=== PATIENT | female | born 1930 | race Caucasian/White ===

== ENCOUNTER 2017-04-01 13:10 | Inpatient (IN) | payer OTHER ==
[~2017-04-01] VITALS: Ht 152.4 cm; Wt 64.4 kg
--- NOTE | ~2017-04-01 | 2DMMODE ---
[facility] [address] [place] [address] 2 D/M-MODE ECHOCARDIOGRAM Name: YULI HAYES Room #: 217-P DIS IN M.R.#: [id number] Admission: 04/01/17 Attend Phys: Nikki Mcclendon Discharge: 04/03/17 Date of : [birth year] Date of Service: 04/03/17 1618 Report #: [id number] THIS REPORT FOR: //name// APPROVED REPORT Study performed: 04/02/2017 07:10:39 EXAM: Comprehensive 2D, Doppler, and color-flow Echocardiogram Patient Location: Echo lab Room #: [facility] Status: routine BSA: 1.61 HR: 70 bpm BP: 138/53 mmHg Rhythm: NSR Other Information Study Quality: Adequate Indications Atrial Fibrillation 2D Dimensions RVDd: 39.27 mm LVEF(%): 61.73 (>50%) IVSd: 10.85 (7-11mm) LVOT Diam: 19.74 (18-24mm) LVDd: 37.03 mm PWd: 11.32 (7-11mm) Ascending Ao: 27.61 (22-36mm) LVDs: 24.99 (25-40mm) Aortic Root: 28.10 mm Ponce's LVEF: 61.73 % Volumes Left Atrial Volume (Systole) Single Plane 4CH: 71.19 mL Single Plane 2CH: 33.71 mL LA ESV Index: 34.00 mL/m2 Aortic Valve AoV Peak Marcus.: 1.88 m/s AO Peak Gr.: 14.15 mmHg LVOT Max P.05 mmHg LVOT Max V: 1.33 m/s CY Vmax: 2.16 cm2 Mitral Valve E/A Ratio: 1.3 MV Decel. Time: 188.39 ms [facility] [place] [address] 2 D/M-MODE ECHOCARDIOGRAM Name: YULI HAYES [facility] Room #: 217-[facility] IN M.R.#: [id number] Admission: 04/01/17 Attend Phys: Nikki Lee Oct Discharge: 04/03/17 Date of : [birth year] Date of Service: 04/03/17 1618 Report #: [id number] MV E Max Marcus.: 1.07 m/s MV A Marcus.: 0.84 m/s MV PHT: 54.63 ms IVRT: 64.59 ms Pulmonary Valve PV Peak Marcus.: 1.13 m/s PV Peak Gr.: 5.09 mmHg Pulmonary Vein P Vein S: 0.70 m/s P Vein D: 0.56 m/s P Vein S/D Ratio: 1.25 Tricuspid Valve TR Peak Marcus.: 3.38 m/s RAP Estimate: 5.00 mmHg TR Peak Gr.: 45.59 mmHg PA Pressure: 51.00 mmHg Left Ventricle The left ventricle is normal size. There is normal LV segmental wall motion. Borderline concentric left ventricular hypertrophy. Left ventricular systolic function is normal. LVEF is 60-65%. Moderate diastolic dysfunction is present (pseudonormal filling). Right Ventricle The right ventricle is normal size. The right ventricular systolic function is normal. Atria Left atrium is dilated. The right atrium size is normal. Aortic Valve Aortic valve is thickened and calcified. Trace aortic regurgitation. There is no aortic valvular stenosis. Mitral Valve Mitral valve leaflets are mildly thickened. Mild mitral annular calcification. Trace mitral regurgitation. No evidence of mitral valve stenosis. Tricuspid Valve The tricuspid valve is normal in structure. There is moderate tricuspid regurgitation. The right atrial pressure is estimated at 5 mmHg. There is moderate pulmonary hypertension with an estimated PAP of 51mmHg. [address] [address] 2 D/M-MODE ECHOCARDIOGRAM Name: YULI HAYES GARY Room #: 217-P [facility] IN M.R.#: [id number] Admission: 04/01/17 Attend Phys: Nikki Mcclendon Discharge: 04/03/17 Date of : [birth year] Date of Service: 04/03/17 1618 Report #: [id number] Pulmonic Valve The pulmonary valve is normal in structure. Trace pulmonic regurgitation. Great Vessels The aortic root is normal in size. The ascending aorta is normal in size. IVC is normal in size and collapses >50% with inspiration. Pericardium There is no pericardial effusion. <Conclusion> The left ventricle is normal size. LVEF is 60-65%. Left atrium is dilated. Aortic valve is thickened and calcified. Trace aortic regurgitation. There is no aortic valvular stenosis. Mitral valve leaflets are mildly thickened. Mild mitral annular calcification. Trace mitral regurgitation. The tricuspid valve is normal in structure. There is moderate tricuspid regurgitation. The right atrial pressure is estimated at 5 mmHg. There is moderate pulmonary hypertension with an estimated PAP of 51mmHg. The pulmonary valve is normal in structure. Trace pulmonic regurgitation. <ELECTRONICALLY SIGNED> By: Aristeo Teague MD 04/03/17 1618 1618 1618 Aristeo Teague MD /INF
--- NOTE | ~2017-04-01 | EKG ---
[address] [place] [address] ELECTROCARDIOGRAM REPORT Name: YULI HAYES GARY Room #: 217-P [facility] IN M.R.#: [id number] Admission: 04/01/17 Attend Phys: Nikki Ansari Discharge: 04/03/17 Date of : [birth year] Report #: [id number] THIS REPORT FOR: //name// [facility] ED Test Date: 2017-04-01 Test Time: 13:23:22 Pat Name: YULI HAYES Department: Room: 217 Gender: F Drafting Clerk: LOY : 1930 Requested By: Jeimy Tang Order Number: [id number] MD: Severiano Maher Measurements Intervals [place] Rate: 159 P: OK: QRS: -49 QRSD: 101 T: 119 QT: 292 QTc: 476 Interpretive Statements Atrial fibrillation with rapid V-rate Left anterior fascicular block Borderline low voltage, extremity leads LVH with secondary repolarization abnormality Compared to ECG 02/04/2009 11:42:46 Left anterior fascicular block now present Left ventricular hypertrophy now present Early repolarization now present Sinus bradycardia no longer present Electronically Signed On 04-03-2017 22:10:51 CDT by Severiano Maher [email or web address] <ELECTRONICALLY SIGNED> By: Severiano Maher MD 04/03/17 2210 1323 1323 Severiano Maher MD /EPI
[2017-04-01 13:11] VITALS: BP 111/80
[2017-04-01] MEDS ORDERED: BENICAR HCT 201 EACH PO (13:51)
[2017-04-01] MEDS ORDERED: LOPRESSOR25 PO (13:51)
[2017-04-01] MEDS ORDERED: RESTORIL30 MG PO (13:52)
[2017-04-01] MEDS ORDERED: NEXIUM40 MG PO (13:52)
[2017-04-01] MEDS ORDERED: ATORVASTATIN CA40 MG PO (13:52)
[2017-04-01] MEDS ORDERED: BIOTIN800 MCG PO (13:53)
[2017-04-01] MEDS ORDERED: CALCIUM 600 MG1 EAC2 PO (13:53)
[2017-04-01] MEDS ORDERED: GLUCOSAMINE HC500 MG PO (13:54)
[2017-04-01 14:09] LABS: HEMOGLOBIN 14.3 gm/dL (12.0-15.0); MCH 31.4 pg (26.0-34.0); MCHC 33.1 g/dL (28.0-37.0); MCV 94.7 fL (80.0-100.0); PLATELET COUNT 365 thou/uL (150-400); RBC 4.54 mil/uL (4.20-5.00); RDW 13.4 % (10.5-14.5); WBC 15.6 thou/uL (4.0-11.0)
[2017-04-01 14:13] LABS: MANUAL DIFF YES
[2017-04-01 14:21] LABS: ANION GAP 8 mmol/L (7-16); BUN 31 mg/dL (7-18); CALCIUM 8.8 mg/dL (8.5-10.1); CHLORIDE 101 mmol/L (98-107); CO2 25 mmol/L (21-32); CREATININE 1.2 mg/dL (0.6-1.0); GLUCOSE 133 mg/dL (74-106); POTASSIUM 3.5 mmol/L (3.5-5.1); SODIUM 134 mmol/L (136-145)
[2017-04-01 14:26] LABS: NT-PRO BRAIN NAT PEPTIDE 4092 pg/mL (<300); TROPONIN-I < 0.04 ng/mL (<0.04-0.07)
[2017-04-01 14:41] LABS: ABSOLUTE NEUTROPHILS 12.8 thou/uL (1.4-8.2); TOTAL CELL COUNT 100
[2017-04-01 15:27] LABS: URINE BILIRUBIN NEGATIVE (Negative); URINE BLOOD NEGATIVE (Negative); URINE COLOR YELLOW; URINE GLUCOSE-RANDOM* NEGATIVE (Negative); URINE KETONES NEGATIVE (Negative); URINE LEUKOCYTES-REFLEX TRACE (Negative); URINE PROTEIN (DIPSTICK) NEGATIVE (Negative); URINE SPECIFIC GRAVITY <= 1.005 (1.003-1.035); URINE UROBILINOGEN 0.2 E.U./dl (0.2-1.0)
[2017-04-01 16:15] LABS: CRYSTALS None Seen /LPF (None Seen); SQUAMOUS 0-3 Few /LPF (0-3); URINE RBC None Seen /HPF (0-2); URINE WBC-REFLEX 0-5 Rare /HPF (0-5)
[2017-04-01 16:24] VITALS: BP 106/61
[2017-04-01 16:47] VITALS: BP 115/61
[2017-04-01 23:37] VITALS: BP 126/87
[2017-04-02 04:22] VITALS: BP 138/53
[2017-04-02 08:00] VITALS: BP 145/53
[2017-04-02 12:43] VITALS: BP 130/70
[2017-04-02 15:19] VITALS: BP 148/60
[2017-04-02 19:27] VITALS: BP 150/71
[2017-04-03 04:23] VITALS: BP 123/42
[2017-04-03 08:35] VITALS: BP 152/66
[2017-04-03 08:52] VITALS: BP 123/42
[2017-04-03] MEDS ORDERED: ELIQUIS5 MG PO (09:21)
[2017-04-03] MEDS ORDERED: DIGOXIN125 MCG PO (09:21)
[2017-04-03 09:46] VITALS: BP 123/42
== END 2017-04-03 13:43 | disposition home or self-care (01) | DRG 310 ==
LOC: ER 13:10 → 2N 16:17 → EROBS 16:17 → 2N 16:55
PROVIDERS: Emergency Medicine
DX: I48.91 Unspecified atrial fibrillation (principal); I10 Essential (primary) hypertension; K21.9 Gastro-esophageal reflux disease without esophagitis; Z90.710 Acquired absence of both cervix and uterus; Z88.8 Allergy status to other drugs, medicaments and biological substances; Z87.891 Personal history of nicotine dependence; Z98.49 Cataract extraction status, unspecified eye
CPT/HCPCS: 10194

== ENCOUNTER → 2017-06-02 | Outpatient (CLI) | payer OTHER ==
[~2017-06-02] MED LIST: ATORVASTATIN CA40 MG PO; BENICAR HCT 201 EACH PO; BIOTIN800 MCG PO; CALCIUM 600 MG1 EAC2 PO; DIGOXIN125 MCG PO; ELIQUIS5 MG PO; GLUCOSAMINE HC500 MG PO; LOPRESSOR25 PO; NEXIUM40 MG PO; RESTORIL30 MG PO
== END ==
LOC: RAD 15:05
DX: Z12.31 Encounter for screening mammogram for malignant neoplasm of breast (principal)

== ENCOUNTER → 2018-06-07 | Outpatient (CLI) | payer OTHER | LOC: RAD 14:36 | DX: Z12.31 Encounter for screening mammogram for malignant neoplasm of breast (principal) ==

== ENCOUNTER 2018-10-21 16:20 | Inpatient (IN) | payer OTHER ==
[~2018-10-21] VITALS: Ht 149.9 cm; Wt 52.8 kg
[2018-10-21 16:37] VITALS: BP 131/65
[2018-10-21 18:35] LABS: HEMATOCRIT 37.8 % (37.0-47.0); HEMOGLOBIN 12.7 gm/dL (12.0-15.0); MCH 31.4 pg (26.0-34.0); MCHC 33.6 g/dL (28.0-37.0); MCV 93.3 fL (80.0-100.0); PLATELET COUNT 231 thou/uL (150-400); RBC 4.05 mil/uL (4.20-5.00); RDW 13.3 % (10.5-14.5); WBC 21.5 thou/uL (4.0-11.0)
[2018-10-21 18:52] LABS: CALCIUM 8.8 mg/dL (8.5-10.1); CREATININE 1.2 mg/dL (0.6-1.0); POTASSIUM 4.6 mmol/L (3.5-5.1)
[2018-10-21 19:07] LABS: ABSOLUTE NEUTROPHILS 19.6 thou/uL (1.4-8.2); ANISOCYTOSIS 1+
--- NOTE | 2018-10-21 19:13 | NUR ---
REPORT FROM DAY NURSE
[2018-10-21 19:33] LABS: URINE BILIRUBIN NEGATIVE (Negative); URINE BLOOD NEGATIVE (Negative); URINE CLARITY CLEAR; URINE COLOR YELLOW; URINE GLUCOSE-RANDOM* NEGATIVE (Negative); URINE KETONES NEGATIVE (Negative); URINE LEUKOCYTES-REFLEX NEGATIVE (Negative); URINE NITRITE-REFLEX NEGATIVE (Negative); URINE PROTEIN (DIPSTICK) NEGATIVE (Negative); URINE UROBILINOGEN 0.2 E.U./dl (0.2-1.0)
[2018-10-21 20:38] VITALS: BP 123/74
[2018-10-21 21:43] VITALS: BP 115/69
[2018-10-21 23:46] VITALS: BP 131/78
[2018-10-22 04:30] VITALS: BP 139/62; BP 147/74
[2018-10-22 06:36] LABS: HEMATOCRIT 32.4 % (37.0-47.0); MCH 31.1 pg (26.0-34.0); MCHC 33.1 g/dL (28.0-37.0); RBC 3.44 mil/uL (4.20-5.00); RDW 13.6 % (10.5-14.5); WBC 11.3 thou/uL (4.0-11.0)
[2018-10-22 06:39] LABS: HEMOGLOBIN 10.7 gm/dL (12.0-15.0)
[2018-10-22 06:52] LABS: CALCIUM 8.3 mg/dL (8.5-10.1); CREATININE 1.1 mg/dL (0.6-1.0); POTASSIUM 4.2 mmol/L (3.5-5.1)
[2018-10-22 06:54] LABS: PROTIME 10.7 Seconds (9.3-11.4)
--- NOTE | 2018-10-22 08:14 | NUR ---
PT ARRIVED TO UNIT APPROX 2230 IN STABLE CONDITION. ADMISSION AND ASSESSMENT COMPLETED, CONSENTS SIGNED. PT A&Ox4, ADMIT WITH LEFT FEMUR FRACTURE, AT BEDSIDE OVERNIGHT. PT REPORTS MINIMAL PAIN IN LEFT LEG, PRIMARILY ONLY WITH MOVEMENT, STATES IT FEEL STIFF AND SHE IS UNABLE TO LIFT/MOVE HER LEG. DENIES SOB OR NAUSEA. REPORTS TAKING ELIQUIS FOR SMALL STROKE IN APR 2017, LAST DOSE TUESDAY ABOUT NOON. CASTRO IN PLACE DRAINING CLEAR YELLOW URINE. IV FLUIDS INFUSING. GAVE ONE TIME DOSE TEMAZEPAM FOR SLEEP. NO OTHER CONCERNS, SHIFT REPORT GIVEN AT 0700.
--- NOTE | 2018-10-22 09:57 | HC ---
[facility] [place] [address] CONSULTATION Name: YULI HAYES Room #: 429-P ADM IN M.R.#: [id number] Admission: 10/21/18 ������������������ Attend Phys: Giancarlo Rayo MD Discharge: ������������������ Date of : [birth year] Report #: [id number] THIS REPORT FOR: //name// CC: Giancarlo Slade CHIEF COMPLAINT: Left hip pain. HISTORY OF PRESENT ILLNESS: The patient is a pleasant 88-year-old female who reports that she was doing some chores around her house when she recalls that she bent over to bean picker some can in regards to put them away and when she turned away from the cabinet, she somehow slipped and fell and landed on her left hip. She reports immediate pain in the left hip and unable to stand because of this pain. The patient denies hitting her head or any loss of consciousness with the fall. She also denies any significant past history of falls. The patient reports that she lives at home with her and typically ambulates without assistance. ALLERGIES: ESTROGEN, LIDOCAINE, and DILTIAZEM. MEDICATIONS: Please see MAR for current medications, but home medications include Eliquis, Lanoxin, metoprolol, esomeprazole, atorvastatin, temazepam, calcium plus D tab, Biotin, and glucosamine. PAST SURGICAL HISTORY: Significant for left shoulder surgery, hiatal hernia repair, hysterectomy. PAST MEDICAL HISTORY: Significant for right ankle pain, hypertension, hyperlipidemia, prior CVA, valve regurgitation, controlled reflux, and atrial fibrillation. PHYSICAL EXAMINATION: VITAL SIGNS: Temperature 36.8 degrees Celsius, blood pressure 139/62, pulse rate 82. GENERAL: The patient is awake and alert, in no acute distress. EXTREMITIES: Left lower extremity, tenderness to palpation about the anterior and lateral aspects of the left hip. Left lower extremity is neurovascularly intact, calf is soft and nontender. IMAGING: Three views of the left hip and pelvis show a left intertrochanteric femur fracture. IMPRESSION: Left hip pain; intertrochanteric left hip femur fracture, status post fall. PLAN: We discussed the patient's diagnosis and treatment options today, we discussed performing a trochanteric femoral nailing today and the patient has [facility] [address] [place] [address] CONSULTATION Name: YULI HAYES Room #: 429-P [facility] IN [facility].#: [id number] Admission: 10/21/18 ������������������ Attend Phys: Giancarlo Rayo MD Discharge: ������������������ Date of : [birth year] Report #: [id number] elected to proceed with operative intervention. We discussed the need for repeat radiographs and followup appointments to assess fracture healing. We also discussed the need for skilled physical therapy and that the patient may need to go to jail facility to receive therapy for a short period of time following surgery. We also discussed the need for use of assistive devices such as cane, walker or wheelchair postoperatively. The patient verbalized understanding and would like to proceed with operative intervention today as planned. ��������������������������������������������� <ELECTRONICALLY SIGNED> ���������������������������������������� By: SAROJ Solano ��������������������������������������������� 10/22/18 0957 0849 0924 SAROJ Solano /nt
--- NOTE | 2018-10-22 11:42 | NUR ---
RECIEVED PT BACK FROM SURGERY. REMAINS A/O. DENIES PAIN AT THIS TIME EXCEPT WHEN MOVING. PT TOLERATING CLEARS. DRESSING TO LEFT HIP CDI. ICE PACKS IN PLACE. VSS. PT RESTING IN BED AT THIS TIME CALL LIGHT IN REACH. WILL CONT. TO MONITOR.
[2018-10-22 18:10] VITALS: BP 96/55
[2018-10-22 19:33] VITALS: BP 109/72
--- NOTE | 2018-10-22 19:52 | EKG ---
[place] [address] [facility] [place] [address] ELECTROCARDIOGRAM REPORT Name: YULI HAYES Room #: 429-P ADM IN M.R.#: [id number] ������������������ Admission: 10/21/18 ������������������ Attend Phys: Giancarlo Rayo MD Discharge: ������������������ Date of : [birth year] Report #: [id number] ����������������������������������������������������������������� [id number] THIS REPORT FOR: //name// [facility] ED Test Date: 2018-10-21 Test Time: 19:21:39 Pat Name: YULI HAYES Department: Room: 429 Gender: F Marketing Mgr: TSTORBRENT : 1930 Requested By: Jeimy Tang Order Number: [id number] MD: Aristeo Teague Measurements Intervals [place] Rate: 86 P: 69 NM: 150 QRS: -64 QRSD: 98 T: 90 QT: 370 QTc: 443 Interpretive Statements Sinus rhythm Probable left atrial enlargement Left anterior fascicular block Borderline low voltage, extremity leads Abnormal R-wave progression, late transition Nonspecific T abnormalities, lateral leads Compared to ECG 04/01/2017 13:23:22 T-wave abnormality now present Atrial fibrillation no longer present Left ventricular hypertrophy no longer present Early repolarization no longer present Electronically Signed On 10-22-2018 19:52:49 POLICE COMMUNICATIONS DISPATCHER by Aristeo Teague [email or web address] ��������������������������������������������� <ELECTRONICALLY SIGNED> ���������������������������������������� By: Aristeo Teague MD ��������������������������������������������� 10/22/181951 20 20 Aristeo Teague MD /EPI
[2018-10-23 04:39] VITALS: BP 108/57
[2018-10-23 07:35] VITALS: BP 120/59
--- NOTE | 2018-10-23 08:20 | NUR ---
ASSUMED CARE AT 1900, ASSESSMENT COMPLETED. PT DENIED PAIN EXCEPT WITH MOVEMENT BUT REPORTED IT WAS STILL TOLERABLE. DENIED NAUSEA OR SOB. TURNED O2 FROM 3L TO 0.5 L AT SHIFT CHANGE, HS VS SHOWED 95% O2 SAT, REMOVED O2 COMPLETELY AT THIS POINT, PT TOLERATED WELL OVERNIGHT, NO DESATTING. EDUCATED ON ACTIVELY MOVING RIGHT LEG AND PROPER ALIGNMENT AND MUSCLE EXERCISES FOR THE LEFT LEG. CASTRO DRAINING WELL OVERNIGHT. NO OTHER CONCERNS, SHIFT REPORT GIVEN AT 0700.
--- NOTE | 2018-10-23 13:55 | NUR ---
INITIAL ASSESSMENT: Pt evaluated for d/c planning needs. Reviewed chart and spoke with nurse and pt. Pt is alert and oriented. Pt lives in 3 story house with her spouse. Pt was in the basement doing laundry when she fell and fractured her hip. Pt said she had a stroke several years ago and went to [facility]. Pt is interested in returning to [place]. Called dental hygienist mobile coordinator and faxed referral. Will await return call re: bed availability and acceptance. Ortho said pt will be ready for d/c on Tuesday from their standpoint.
[2018-10-23 17:32] VITALS: BP 105/50
[2018-10-23 20:14] VITALS: BP 125/56
[2018-10-24] VITALS (8 sets, daily range): BP systolic 77–109; BP diastolic 34–59
--- NOTE | 2018-10-24 03:33 | NUR ---
PT ALERT WITH FORGETFULNESS AT THE START OF SHIFT,NEEDED CONSTANT REMINDER TO USE CALL LIGHT FOR ASSISTANCE.SUPPOSITORY ADMINISTERED BY DAY SHIFT NURSE DURING REPORT,PT HAS HAD LOOSE STOOLS X2 SINCE THEN.VANDANA CARE WITH EACH INCONTINENCE.IVF INFUSING ORDERED.CASTRO CATH TO DD.FALL PRECAUTIONS IN PLACE.CALL LIGHT WITHIN REACH.
--- NOTE | 2018-10-24 09:59 | NUR ---
DR. NGUYEN OKAY'D LEAVING IV OUT IT'S LEAKING AND HALF OUT.
--- NOTE | 2018-10-24 11:32 | NUR ---
PHYSICIAN CALL TO ALERT TO B/P'S LOW, MIGHT BE HER NORM, DR. LIND ALSO AWARE OF NO IV AND OKAYED
--- NOTE | 2018-10-24 14:59 | NUR ---
I have reviewed and concur with student documentation.
--- NOTE | 2018-10-24 15:11 | NUR ---
Patient had left hip fruction from falling from the ground level, had surgery on 10/22/18. Pt. is alert and oreinted X4 with a little confusion at times. patient has quevedo cathater and drains clear yellow urine, incontinent of bowel. PT came and help her Ambulate, she walk a few steps and tollerated it well and made her very tired after luke. Her BP is low and lisinopril was held because of it. Patient has adequate nutrition intake.
--- NOTE | 2018-10-24 17:55 | NUR ---
B/P OF 77/40S REPORTED DURING ADMISSION OF ANOTHE PT, COMM W/PHYSICIAN, BOLUS NEEDED, PT'S IV WAS D/C'D THIS A.M. IV BEING STARTED BY ANOTHER RN AND CALL PUT IN TO IV TEAM, PT IS INCREASING HER INGESTION OF FLUIDS SUCCESSFULLY AND B/P OF 80/40S TAKEN LATER
[2018-10-25 03:48] LABS: CALCIUM 7.8 mg/dL (8.5-10.1); MAGNESIUM 1.4 mg/dL (1.8-2.4); POTASSIUM 3.4 mmol/L (3.5-5.1)
[2018-10-25 04:33] LABS: MCH 32.3 pg (26.0-34.0); MCHC 34.2 g/dL (28.0-37.0); MCV 94.3 fL (80.0-100.0); RBC 1.95 mil/uL (4.20-5.00); RDW 13.2 % (10.5-14.5); WBC 7.1 thou/uL (4.0-11.0)
[2018-10-25 04:37] LABS: HEMATOCRIT 18.4 % (37.0-47.0); HEMOGLOBIN 6.3 gm/dL (12.0-15.0)
[2018-10-25 05:15] VITALS: BP 90/47
[2018-10-25 06:53] VITALS: BP 94/49; BP 99/44
--- NOTE | 2018-10-25 10:09 | O ---
[facility] [place] [address] OPERATIVE REPORT Name: YULI HAYES Room #: 429-P ADM IN M.R.#: [id number] Admission: 10/21/18 ������������������ Attend Phys: Seng Lee MD Discharge: ������������������ Date of : [birth year] Report #: [id number] THIS REPORT FOR: //name// CC: Giancarlo Slade DATE OF SERVICE: 10/22/2018 PREOPERATIVE DIAGNOSIS: Left hip intertrochanteric femur fracture, 3-part, status post fall. POSTOPERATIVE DIAGNOSIS: Left hip intertrochanteric femur fracture, 3-part, status post fall. PROCEDURE PERFORMED: Left hip intramedullary nailing. SURGEON: Chun Ambriz MD SLICE CUTTING MACHINE OPERATOR HELPER: Latia Hernandez PA-C ANESTHESIA: General by Dr. Burton. FLUIDS: Please see anesthesia records. ESTIMATED BLOOD LOSS: Approximately 20 mL. IMPLANTS UTILIZED: Synthes short trochanteric femoral nail 135 degrees x 170 mm, 95 mm helical blade, 40 mm distal locking screw. DESCRIPTION OF PROCEDURE: After proper identification of the patient and operative site in preoperative holding area, the operative site was signed by myself. Prophylactic antibiotics given. The patient and her elected to proceed with the above operative intervention after reviewing the risks, benefits, alternatives and potential complications of her injury and treatment. The patient was brought back to the operative suite, positioned on the operative table after induction of satisfactory general anesthesia. The [place] fracture table was utilized. Lower extremities were placed within the boots and then suspended. The legs were suspended in a scissored position. Fracture was reduced using the C-arm as best as possible in the AP, oblique and lateral planes to ensure better communication in the lateral plane. This resulted in some mild displacement in the AP plane, but overall was acceptable. The leg was sterilely prepped and draped in the usual manner. Final skin draping was with an [place] isolation drape. An incision proximal to the greater trochanter was planned after a timeout, skin was incised sharply. Full-thickness skin flaps were developed. Fascia was incised longitudinally. An awl was placed about the tip of the greater trochanter, placed within the proximal femur. A [address] [address] OPERATIVE REPORT Name: YULI HAYESEN Room #: 429-P ADM IN M.R.#: [id number] Admission: 10/21/18 ������������������ Attend Phys: Seng Lee MD Discharge: ������������������ Date of : [birth year] Report #: [id number] guidewire was inserted. The position was verified with C-arm. An 11 mm short TFN nail was carefully impacted into position. Through a separate more distally based incision, the helical blade drill sleeves were advanced to the lateral cortex of the femur and a guide pin was inserted into the femoral head while checking in the AP and lateral planes. The outer cortex was reamed and a 95 mm helical blade was carefully impacted into position. It was checked in the AP and lateral planes and deemed to be in satisfactory position. Proximal locking screw was tightened. Next, through a separate incision, a 40 mm distal locking screw was inserted through the nail. Final implant images were taken and fascia was repaired with #1 Vicryl and 2-0 Vicryl for the subcutaneous tissues. Final skin closure was with jose. Sterile dressing was applied. She was awakened and transferred to the recovery room in stable condition. The patient may be weightbearing as tolerated. Qualified chiropractic assistant utilized throughout the entire procedure to aid in the patient's limb positioning, visualization and retraction of the tissues, instrument passage, closure and dressing application. ��������������������������������������������� <ELECTRONICALLY SIGNED> ���������������������������������������� By: Chun Ambriz MD ��������������������������������������������� 10/25/18 1009 0951 1125 Chun Ambriz MD /nt
[2018-10-25 12:45] LABS: HEMATOCRIT 23.4 % (37.0-47.0); HEMOGLOBIN 7.9 gm/dL (12.0-15.0)
--- NOTE | 2018-10-25 14:03 | NUR ---
FAXED CLINICAL UPDATE TO [facility] LEFT [facility] WITH ADM. THAT UPDATE FAXED. DCP TO FOLLOW.
--- NOTE | 2018-10-25 17:23 | NUR ---
SHILA PROVIDED TO NURA AT [facility]. PT MAY BE READY TO DC JACY. CASE DISCUSSED WITH DR LIND.
[2018-10-25 18:22] VITALS: BP 107/59
--- NOTE | 2018-10-25 18:30 | NUR ---
PT ASSESSED THIS AM. ONE UNIT PRBC'S GIVEN AND HGB INCREASED TO 7.9. IV FLUIDS INFUSING. PT WORKED W/ OT AND PT AND DOING WELL. SAT UP SEVERAL HOURS IN CHAIR AND TOLERATED IT WELL. MINIMAL PAIN. PLAN FOR D/C TOMORROW.
[2018-10-25 19:18] VITALS: BP 145/75
--- NOTE | 2018-10-25 22:54 | NUR ---
ASSUMED CARE AT 1900, ASSESSMENT COMPLETED. PT DENIES PAIN, REPORTS DISCOMFORT FROM SITTING IN CHAIR EARLIER BUT COMFORTABLE ONCE IN BED. DENIES NAUSEA OR SOB. ENCOURAGED USE OF I.S. WHILE IN BED. REPORT CALLED TO SUHA ON [facility] AT 0; CALLED PT'S SPOUSE TO NOTIFIY SHE WAS BEING MOVED, PT TRANSPORTED BY W/C AT 0. PT ARRIVED IN STABLE CONDITION, NO OTHER CONCERNS.
[2018-10-25 22:55] VITALS: BP 142/62
--- NOTE | 2018-10-25 23:47 | NUR ---
Pt transferred to unit at 2200 via WC,A/OX4 oriented to room and call light system.Pt up with moderate assist of 1/GB to the bed,WBAT to Left hip denies pain at this time. Dsg intact on left hip,edema noted on LLE 2+ feet elevated on a pillow. Chery patent draining light yellow urine. Pt had 2 PIV's on transfer RFA/AC requested the AC to be discontinued as she is ain't able to bend her arm,IV dc without any problems. Fluids infusing via RFA IV without any problems noted. Fall precautions implemented and pt verbalizes understanding. Pt resting with eyes closed at this time,will continue to monitor pt.
[2018-10-26 00:13] VITALS: BP 142/62
--- NOTE | 2018-10-26 03:23 | NUR ---
NOTE FOR 10/25/18 SOFTWARE ARCHITECT; RECEIVED SHIFT ON 10/24/18; PT. AOX4; SBP ABOVE 100'S; NO C/O PAIN DURING REST; BOLUS FLUID RUNNING; HS MEDICATION GIVEN; REQUESTED PRN SLEEP MEDICATION; ABLE TO REST DURING THE NIGHT; NO DIZZINESS OR C/O WEAKNESS; EARLY LABS SHOWED LOW K., MG; HMG 6.3; MANAGER DRUG NOTIFIED; ORDERS RECEIVED; ONE UNIT RED BLOOD CELLS STARTED AT SHIFT CHANGE; PRE VS WNL; 15 MIN VS WNL; PASSED ON REPORT; ASSESSMENT CHARGED; FOLLOWED POC.
[2018-10-26 06:50] LABS: HEMATOCRIT 23.5 % (37.0-47.0); MCH 31.2 pg (26.0-34.0); MCHC 34.1 g/dL (28.0-37.0); MCV 91.6 fL (80.0-100.0); RBC 2.57 mil/uL (4.20-5.00); RDW 14.2 % (10.5-14.5); WBC 6.4 thou/uL (4.0-11.0)
[2018-10-26 07:08] LABS: CALCIUM 8.5 mg/dL (8.5-10.1); CREATININE 0.8 mg/dL (0.6-1.0); MAGNESIUM 1.5 mg/dL (1.8-2.4); POTASSIUM 3.7 mmol/L (3.5-5.1)
[2018-10-26 07:55] VITALS: BP 127/47
--- NOTE | 2018-10-26 09:37 | NUR ---
ASSUMED PATIENT AND CARES AT 0715, A&OX4 WOKE LAYING IN BED, DENIES PAIN AND DISCOMFORT, SCDS TO BLE IN PLACE AND FUNCTIONING, ABD DRESSING TO LEFT HIP C/D/I, CASTRO CATH TO DD PATENT WITH CLEAR LIGHT YELLOW URINE SECURED WITH STAT LOCK, FALL PRECAUTIONS IN PLACE, RIGHT FOREARM IV WITH FLUIDS INFUSING AT 80ML/HR, HEARING AIDS TO BILAT EARS, PERSONAL BELONGINGS AND CALL LIGHT IN REACH, WILL CONTINUE TO MONITOR
--- NOTE | 2018-10-26 12:24 | NUR ---
WINDY reviewed chart and spoke with nursing and attending physician. Pt was transferred to [facility] from and is medically stable for discharge to [facility] pending insurance authorization. WINDY spoke with Abena in admissions to notify of pt being ready for discharge today and to request them to submit for insurance authorization. Awaiting final discharge orders. Chart copy ordered. WINDY is following to assist as needed with discharge planning.
[2018-10-26] MEDS ORDERED: KEPPRA 500 MG500 M1 PO (12:38)
[2018-10-26] MEDS ORDERED: COLACE 100 MG100 MG PO (12:38)
[2018-10-26] MEDS ORDERED: TRAMADOL 50 MG50 MG PO (12:38)
[2018-10-26] MEDS ORDERED: ACETAMINOPHEN325 M1 PO (12:38)
[2018-10-26] MEDS ORDERED: PEPCID20 MG PO (12:38)
[2018-10-26] MEDS ORDERED: HYDROCODON-ACE1 EAC7 PO (12:38)
[2018-10-26] MEDS ORDERED: MAGNESIUM400 MG PO (12:38)
--- NOTE | 2018-10-26 13:52 | NUR ---
LAKIA WAS NOTIFIED BY ADM. PRADO AT [facility] THAT THEY HAVE AUTH. NOTIFIED SW AND SHE WILL ARRANGE TRANSPORT WITH FACILITY.
--- NOTE | 2018-10-26 16:09 | NUR ---
PATIENT TRANSFERRED FROM [facility] TO [facility], REPORT CALLED TO JUDITH, RIGHT FOREARM SALINE LOCK REMOVED AND REPLACED WITH GAUZE AND TAPE, CASTRO CATH TO DD REMOVED, PATIENT CHOSE TO REMAIN IN HOSPITAL GOWN AT DISCHARGE, SON AND AT BEDSIDE AND WILL MEET PATIENT AT [facility], PERSONAL BELONGINGS AND DISHCARGE PACKET TRANSPORTED WITH PATIENT
== END 2018-10-26 16:16 | DRG 480 ==
LOC: ER 16:20 → 4E 20:06 → EROBS 20:06 → 4E 21:44 → SICU 10-25 22:47
PROVIDERS: Emergency Medicine; Nurse Practitioner Acute Care; Nurse Practitioner Family; ADMIT Internal Medicine
PROC: 0QS706Z Reposition Left Upper Femur with Intramedullary Internal Fixation Device, Open Approach (ICD-10-PCS; principal; 2018-10-22)
PROC: 30233N1 Transfusion of Nonautologous Red Blood Cells into Peripheral Vein, Percutaneous Approach (ICD-10-PCS; 2018-10-25)
DX: S72.142A Displaced intertrochanteric fracture of left femur, initial encounter for closed fracture (principal); E43 Unspecified severe protein-calorie malnutrition; N18.4 Chronic kidney disease, stage 4 (severe); D62 Acute posthemorrhagic anemia; D72.829 Elevated white blood cell count, unspecified; R41.82 Altered mental status, unspecified; E78.5 Hyperlipidemia, unspecified; I48.91 Unspecified atrial fibrillation; G47.00 Insomnia, unspecified; M62.84 Sarcopenia; E87.6 Hypokalemia; I12.9 Hypertensive chronic kidney disease with stage 1 through stage 4 chronic kidney disease, or unspecified chronic kidney disease; T40.605A Adverse effect of unspecified narcotics, initial encounter; K21.9 Gastro-esophageal reflux disease without esophagitis; Z98.49 Cataract extraction status, unspecified eye; Z86.73 Personal history of transient ischemic attack (TIA), and cerebral infarction without residual deficits; Z90.710 Acquired absence of both cervix and uterus; Z87.891 Personal history of nicotine dependence; Z88.8 Allergy status to other drugs, medicaments and biological substances; Z79.01 Long term (current) use of anticoagulants; W01.0XXA Fall on same level from slipping, tripping and stumbling without subsequent striking against object, initial encounter; Y93.89 Activity, other specified; Y92.89 Other specified places as the place of occurrence of the external cause; Y99.8 Other external cause status; Z68.23 Body mass index [BMI] 23.0-23.9, adult
CPT/HCPCS: 10183; 10783; 15002; 50101; 50386; 50635; 51412; 51538; 51817; 52146; 52304; 56525; 57092; 62110; 62900; 70005